=== PATIENT | female | born 2000 | race Caucasian/White ===

== ENCOUNTER 2021-01-04 20:08 | Emergency (ER) | payer OTHER, BC, SELFPAY ==
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
[2021-01-04 20:22] VITALS: BP 145/91; PULSE 108; RESP 18; TEMP 36.6; O2SAT 97
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
[2021-01-04 21:46] VITALS: BP 122/78; PULSE 86; RESP 18; O2SAT 99
== END 2021-01-04 21:47 | disposition home or self-care (01) ==
LOC: ANHED 21:28
PROVIDERS: Emergency Provider Emergency Medicine
DX: S13.4XXA Sprain of ligaments of cervical spine, initial encounter (principal); S29.012A Strain of muscle and tendon of back wall of thorax, initial encounter; Z97.5 Presence of (intrauterine) contraceptive device; V43.62XA Car passenger injured in collision with other type car in traffic accident, initial encounter
CPT/HCPCS: 72072; 99283

== ENCOUNTER 2021-06-15 12:17 | Emergency (ER) | payer OTHER, BC, SELFPAY ==
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
[2021-06-15 12:20] VITALS: BP 141/80; PULSE 96; RESP 17; TEMP 36.8; O2SAT 99
[2021-06-15] MEDS: KETOROLAC 30 MG/ML VIAL (*BKC) (13:29)
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
[2021-06-15 15:31] VITALS: BP 142/74; PULSE 84; RESP 17; O2SAT 98
== END 2021-06-15 15:48 | disposition home or self-care (01) ==
PROVIDERS: Emergency Provider Emergency Medicine
DX: S16.1XXA Strain of muscle, fascia and tendon at neck level, initial encounter (principal); V43.52XA Car driver injured in collision with other type car in traffic accident, initial encounter
CPT/HCPCS: 72125; 96372; 99284; J1885

== ENCOUNTER → 2022-05-07 10:45 | Outpatient (CLI) | payer BC, SELFPAY ==
--- NOTE | ~2022-05-07 | MR_ITS ---
EXAMINATION: MR pituitary wo/w con DATE: 05/07/2022 11:35 INDICATION: Hyperprolactinemia TECHNIQUE: Magnetic resonance imaging (MRI) of the brain and brainstem was performed without and with 18 mL Multihance intravenous contrast. Whole-brain sequences included sagittal T1-weighted FSE, axia l diffusion-weighted FS EPI, axial T2*-weighted GRE, axial T2-weighted FLAIR Propeller, and axial T2- weighted Propeller. Small ocagq-xw-ehie sequences included sagittal and coronal T1-weighted FSE cente red at the pituitary. Postcontrast sequences included small cyyqt-ti-fslg coronal T1-weighted FSE in a time course and sagittal T1-weighted FSE and whole-brain axial T1-weighted FSE. Apparent diffusion coefficient (ADC) maps were created. COMPARISON: None. FINDINGS: There are no areas of restricted diffusion to suggest acute infarction. No intracranial hemorrhage or abnormal intracranial mass lesion. There are no intraparenchymal signal abnormalities seen on the ot her pulse sequences. Pituitary appears normal in size and contour with normal homogeneous enhancement . No pituitary micro-/macroadenoma. Pituitary stalk is normal and midline with no evident impinging l esions. The ventricles are symmetric and normal in size. There are no abnormal extra-axial fluid phuc ections. Flow voids are seen in the cerebral arteries on the T2-weighted sequences consistent with th eir expected patency. Visualized orbits and soft tissues are unremarkable. There are no areas of abno rmal enhancement on the post contrast images. IMPRESSION: 1. Normal brain and pituitary MRI. Reviewed, dictated and finalized at location A.
[2022-05-07 11:04] LABS: Estimated Glomerular Filt Rate > 60
== END ==
PROVIDERS: PCP Family Medicine; Visit Provider Obstetrics & Gynecology
DX: E22.1 Hyperprolactinemia (principal)
CPT/HCPCS: 70553; A9577

== ENCOUNTER 2023-12-13 20:50 | Emergency (ER) | payer BC, SELFPAY ==
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
[2023-12-13 20:51] VITALS: BP 123/100; PULSE 78; RESP 19; TEMP 36.1; O2SAT 98
[2023-12-13 21:43] LABS: Appearance Urine Clear (Clear); Bacteria Urine None Seen /hpf; Bilirubin Urine 1+ (Negative); Blood Urine 2+ (Negative); Color Urine Orange (Yellow); Glucose Urine UA Negative (Negative); Ketones Urine Negative (Negative); Leukocyte Esterase Ur 3+ LEU/UL (Negative); Need Manual Microscopic Reviewed; Nitrate Urine Positive (Negative); Non Pathogenic Casts 0-2; Protein Urine 1+ mg/dL (Negative); Specific Grav Ur 1.008 (1.001-1.035); Squamous Epithelial Cell Urine Occasional /hpf (Few); WBC Urine 21-50 /hpf
[2023-12-13 21:45] LABS: Add Urine Microscopic? YES
--- NOTE | 2023-12-13 21:45 | ED.FEMALEGU ---
HPI - Female Genitourinary General Chief complaint: Urogenital-Female Stated complaint: Blood in urine, abd pain, discoloration on r breas Time Seen by Provider: 12/13/23 21:22 Source: patient Mode of arrival: ambulatory Limitations: no limitations History of Present Illness HPI Narrative: This is a 23-year-old female who presents to the ED for chief complaint of frequency of urination with hematuria x2 days. Reports some suprapubic discomfort as well. States she has had UTIs in the past but has not had pain like this. Today she reports that she started to have flank pain on the right side. Denies nausea, vomiting, fevers, chills. Related Data Home Medications Medication Instructions Recorded Confirmed norethindrone 0.5 mg-ethinyl 1 tablet PO 02/26/23 12/11/23 estradiol 35 mcg tablet (Nortrel) Allergies Allergy/AdvReac Type Severity Reaction Status Date / Time Penicillins Allergy Intermediate Unknown Verified 12/13/23 20:54 metformin AdvReac Severe diarrhea Verified 12/13/23 20:54 Review of Systems Review of Systems: All systems as dictated in [facility] Past Medical History Medical History Healthy female adult Surgical History Surgical History No history of previous surgery Family History Family History Father Hypertension Social History Social History (Updated 12/11/23 @ 16:08 by Yuli Duncan MA) Smoking status: Never smoker Second hand tobacco smoke exposure: No Alcohol intake: current Alcohol use details: socially Substance use: never Substance use type: marijuana Last use: 12/10/23 Living arrangements: with family Additional living arrangements comments: Occupation/Education: student Gender identity (if verbalized by the patient): Female Exam Narrative: GENERAL: Well-appearing, well-nourished, and in no acute distress. HEAD: Normocephalic, atraumatic. EYES: PERRLA and EOMI. ENT: Nares clear, no rhinorrhea or epistaxis. Mucous membranes moist. Oropharynx without tonsillar hypertrophy exudate or other lesions. NECK: Supple. No adenopathy or masses. CHEST: No respiratory distress. Clear to auscultation. No wheezes rales or rhonchi HEART: Regular rate and rhythm. No murmur heard. Normal peripheral pulses. ABDOMEN: Mild right flank tenderness. Negative left flank tenderness. soft, otherwise nontender, nondistended, normal active bowel sounds. MSK: Normal range of motion. No edema. SKIN: Warm, dry, no rash. NEURO: Alert and oriented x3. No focal deficits. PSYCH: Normal mood and affect. Course Vital Signs Vital signs: Vital Signs Temperature 97.0 F L 12/13/23 20:51 Pulse Rate 78 12/13/23 20:51 Respiratory Rate 19 12/13/23 20:51 Blood Pressure 123/100 H 12/13/23 20:51 Pulse Oximetry 98 12/13/23 20:51 Oxygen Delivery Room Air 12/13/23 20:51 Temperature 97.0 F L 12/13/23 20:51 Pulse Rate 69 12/14/23 01:01 Respiratory Rate 15 12/14/23 01:01 Blood Pressure 118/54 L 12/14/23 01:01 Pulse Oximetry 98 12/14/23 01:01 Oxygen Delivery Room Air 12/13/23 20:51 MDM - Female Genitourinary MDM Narrative Medical decision making narrative: This is a 23-year-old female who presents to the ED with chief complaint of urinary symptoms and abdominal pain. Vitals are normal. Exam does reveal a little bit of right flank tenderness along with suprapubic tenderness. Lab work shows elevated white count of 14.6. CMP unremarkable. CRP elevated to 1.8. Urinalysis shows nitrite positive urine, 3+ leuks and 21-50 wbc's. Overt urinary tract infection detected and culture will be sent. She was given Levaquin dose here. CT abdomen and pelvis with IV contrast: Impression: No obstructive uropathy. Kidneys are unremarkable. Normal renal corti
[2023-12-13 21:54] LABS: Basophils Percent Auto 0.3 % (0.2-1.2); Eosinophils Absolute Auto 0.1 K/mm3 (0-0.3); Eosinophils Percent Auto 0.6 % (0-4.4); Hematocrit 37.1 % (37.0-47.0); Hemoglobin 12.3 g/dL (12.0-15.0); Immature Granulocyte Absolute 0.03 K/mm3 (0.00-0.031); Immature Granulocyte Percent A 0.2 % (0-0.5); Lymphocytes Absolute Auto 3.01 K/mm3 (0.9-3.2); Lymphocytes Percent Auto 20.6 % (18.3-44.2); Mean Corpuscular HGB Conc 33.2 g/dl (32-36); Mean Corpuscular Volume 87.5 fl (80-100); Mean Platelet Volume 9.2 fl (7.4-10.4); Monocytes Absolute Auto 0.7 K/mm3 (0.1-0.6); Monocytes Percent Auto 4.5 % (2.6-8.5); Neutrophils Absolute Auto 10.8 K/mm3 (1.3-6.7); Neutrophils Percent Auto 73.8 % (45.5-73.1); Platelet Count Result 404 k/mm3 (150-375); Red Blood Count 4.24 M/mm3 (4.2-5.4); Red Cell Distribution Width 12.6 % (11.5-14.5); White Blood Count 14.6 K/mm3 (4.5-10.0)
[2023-12-13 22:06] LABS: Alanine Aminotransferase 16 U/L (6-35); Albumin Level 4.2 g/dL (3.5-5.1); Alkaline Phosphatase 49 U/L (38-126); Anion Gap 9 mmol/L (8-16); Aspartate Amino Transferase 19 U/L (14-36); Bilirubin,Total 0.4 mg/dL (0.2-1.3); Blood Urea Nitrogen 12 mg/dL (7-17); CRP 1.8 mg/dL (<1.0); Calcium 9.6 mg/dL (8.4-10.2); Carbon Dioxide 23 mmol/L (22-30); Chloride 105 mmol/L (98-107); Estimated CRCL calculation 104 ml/min; Estimated Glomerular Filt Rate > 60; Glucose 112 mg/dL (65-110); Potassium 3.5 mmol/L (3.4-5.0); Sodium 137 mmol/L (137-145)
[2023-12-13 22:13] VITALS: BP 130/80; PULSE 94; RESP 15; O2SAT 99
[2023-12-13] MEDS: levoFLOXacin 750 MG/D5W 150 ML 750 MG/150 ML BAG 100 MG IVPB (22:45)
[2023-12-14 01:01] VITALS: BP 118/54; PULSE 69; RESP 15; O2SAT 98
== END 2023-12-14 01:02 | disposition home or self-care (01) ==
PROVIDERS: Emergency Medicine; Emergency Provider Physician Assistant; PCP Family Medicine
DX: N39.0 Urinary tract infection, site not specified (principal)
CPT/HCPCS: 36415; 74177; 80053; 81001; 81025; 85025; 86140; 87086; 96365; 96366; 99284; J1956; Q9967

== ENCOUNTER 2023-12-15 13:02 | Outpatient (CLI) | payer BC, SELFPAY ==
--- NOTE | ~2023-12-15 | US_ITS ---
US breast RT limited DATE: 12/15/2023 13:53 INDICATION: Right breast pain TECHNIQUE: Real-time imaging targeted at area of clinical complaint of right breast pain, from 12:00 to 3:00 and subareolar area. COMPARISON: None FINDINGS: No suspicious mass or shadowing, cyst or other significant sonographic abnormality is detec aman. IMPRESSION: BI-RADS Category 1: Negative Reviewed, dictated and finalized at Location A. Reviewed, dictated and finalized at location A. [employer] S[employer] LANGUAGE INTERPRETER
== END 2023-12-15 13:03 | disposition home or self-care (01) ==
PROVIDERS: PCP Family Medicine; Visit Provider Physician Assistant
DX: N64.4 Mastodynia (principal)
CPT/HCPCS: 76642

== ENCOUNTER 2024-08-03 03:49 | Day surgery (SDC) | payer OTHER, BC, SELFPAY ==
[2024-07-25 13:57] VITALS: BMI 32.9
--- NOTE | 2024-07-25 14:05 | SUR.PREOP ---
Report to the Outpatient Waiting Room, entrance under the green pavilion located off [facility], at time 9:15a.m. on date . Planned Procedure Time: .? Time changes happen often and if your time is changed the preop area will call you the afternoon before. - You and your visitor will be asked to self-screen and do not enter if you have any COVID symptoms. Please call surgeon if you need to reschedule. - A mask is optional within the hospital at this time. Patients may have clear liquids (water, carbonated beverages, clear teas, apple juice) until 3 hours prior to surgery with a maximum of 20 ounces. - No food from midnight until time of surgery and no smoking - Infants may have breast milk until 4 hours before surgery, formula 6 hours prior to surgery. - Children will be allowed to drink immediately following surgery.? If applicable, please bring a bottle or sippy cup to assist with drinking. Juice, water, soda, and popsicles are readily available.? For infants on formula, please bring formula the day of surgery.? Pacifiers are allowed. Take only the following medications with a SIP of water on the morning of surgery: DO NOT STOP ANY OF YOUR OTHER PRESCRIPTION MEDICATIONS PRIOR TO SURGERY EXCEPT THE FOLLOWING Medications to discontinue per physician Date to take last dose Please no make-up, nail sinhala, hairspray, perfume, deodorant, or body powder the day of surgery.? No jewelry (including any body piercings) or valuables the day of surgery, leave them at home.? Please take a shower or bath the night before, or the morning of, surgery with an antibacterial soap.? Wear comfortable, loose fitting clothing.? Children are encouraged to wear pajamas. - Jewelry must be removed prior to entering the operating room.? Rings and piercings that are not removed may be cut off. - The hospital will not accept responsibility for valuables.? - Please leave all valuables, including medications, at home the day of surgery. If you are going home after surgery, a licensed hi lo driver must drive you home.? - NO public transportation without another adult if you receive anesthesia. - We recommend that an adult stay with you for 24 hours following discharge. - We also recommend that you do not drive, make important decision, drink alcoholic beverages, or take any drugs that were not prescribed by your health care provider for at least 24 hours after your discharge time. For Pediatric surgeries, we recommend two adults accompany the child home. Follow any additional instructions given to you from your surgeon. Telephone instructions given to and asked if any additional questions and then verbalized understanding. Patient advised to call surgeon office or pre surgery nurse liaison [phone] if any additional questions.
--- NOTE | 2024-07-25 14:14 | SUR.PREOP ---
Addendum entered by Pily James RN 07/26/24 05:49: Up to 20oz of clear liquids until 0315, 8 hours prior to surgery Original Note: Report to the Outpatient Waiting Room, entrance under the green pavilion located off [facility], at time 0915 on date 08/03/2024. Planned Procedure Time: 1115.? Time changes happen often and if your time is changed the preop area will call you the afternoon before. - You and your visitor will be asked to self-screen and do not enter if you have any COVID symptoms. Please call surgeon if you need to reschedule. - A mask is optional within the hospital at this time. Patients may have clear liquids (water, carbonated beverages, clear teas, apple juice) until 3 hours prior to surgery with a maximum of 20 ounces. - No food from midnight until time of surgery and no smoking - Infants may have breast milk until 4 hours before surgery, infant formula 6 hours prior to surgery. - Children will be allowed to drink immediately following surgery.? If applicable, please bring a bottle or sippy cup to assist with drinking. Juice, water, soda, and popsicles are readily available.? For infants on formula, please bring formula the day of surgery.? Pacifiers are allowed. Take only the following medications with a SIP of water on the morning of surgery: inhaler DO NOT STOP ANY OF YOUR OTHER PRESCRIPTION MEDICATIONS PRIOR TO SURGERY EXCEPT THE FOLLOWING Medications to discontinue per physician N/A Date to take last dose N/A Please no make-up, nail egyptian, hairspray, perfume, deodorant, or body powder the day of surgery.? No jewelry (including any body piercings) or valuables the day of surgery, leave them at home.? Please take a shower or bath the night before, or the morning of, surgery with an antibacterial soap.? Wear comfortable, loose fitting clothing.? Children are encouraged to wear pajamas. - Jewelry must be removed prior to entering the operating room.? Rings and piercings that are not removed may be cut off. - The hospital will not accept responsibility for valuables.? - Please leave all valuables, including medications, at home the day of surgery. If you are going home after surgery, a licensed local delivery truck driver must drive you home.? - NO public transportation without another adult if you receive anesthesia. - We recommend that an adult stay with you for 24 hours following discharge. - We also recommend that you do not drive, make important decision, drink alcoholic beverages, or take any drugs that were not prescribed by your health care provider for at least 24 hours after your discharge time. For Pediatric surgeries, we recommend two adults accompany the child home. Follow any additional instructions given to you from your surgeon. Telephone instructions given to Jennifer Qureshi and asked if any additional questions and then verbalized understanding. Patient advised to call surgeon office or pre surgery nurse liaison [phone] if any additional questions.
[2024-08-03] VITALS (8 sets, daily range): BP systolic 128–157; BP diastolic 66–92; PULSE 70–102; RESP 12–20; TEMP 36.2–36.7; O2SAT 95–100; BMI 33.4
--- NOTE | 2024-08-03 06:54 | P.HPUP_ITS ---
History and Physical Update Update Date/Time: 08/03/24 06:54 Patient seen and examined in pre-operative holding area. No interval change in medical history or symptoms. Patient remembers previous discussion of benefits and alternatives to procedure. Continues to desire to proceed with bilateral breast reduction. I reviewed the risks including but not limited to bleeding ,infection, asymmetry, undesireable cosmetic appearance, partial/total skin/nipple loss, no change or worsening of symptoms, change in sensation. I discussed the possible use of assistants and their level of participation in the case. Patient stated understanding and signed the consent form wishing to pr oceed
--- NOTE | 2024-08-03 06:54 | P.OP_ITS ---
Procedure Note - Detailed Date of Procedure 08/03/24 Pre-op Diagnosis hypertrophy of breasts Post-op Diagnosis Same Procedure Performed b/l breast reduction Surgeon Colin Mcpherson MD Technology Education Teacher meri vidal pa-c Anesthesia General Description of Procedure Patient was seen in the preoperative holding area where the consent form was signed and breast were marked for an inferior pedicle Akers pattern reduction. Patient was taken back to the operating room and placed on the table in the supine position. Time-out was performed with Anesthesia, surgeon, and staff agreeing on patient's name, site, and surgery to be performed. SCDs were placed on the lower extremities and inflated. Antibiotics were given IV. After general anesthesia was administered the breasts were prepped and draped in the usual sterile fashion. I took my attention 1st to the larger right breast where I used a saline moistened lap pad and Laisha clamp to create a breast tourniquet. I used a 38 mm nipple Sizer to circumscribe the nipple-areolar complex and proceeded with making this incision and de epithelializing a 7 cm wide inferior pedicle. I made my other skin incisions with 15 blade. Bovie was used to elevate my superior skin flaps and Ricky's plane down to the level of the chest wall exp osing the breast. I proceeded with resection of 581 g of tissue from the right breast. further resection would have increased risk of damage to nipple areolar blood and nerve supply. I irrigated with normal saline and hemostasis with Bovie cautery. The pedicle was plicated with 2-0 Vicryl suture. 2-0 Prolene was used to secure the T-junction. 3-0 Vicryl was used for dermal closure. The nipple was brought out 5 cm above the inframammary fold at the most prominent portion of the breast at the breast midline and secured with 3-0 Vicryl suture. 4-0 Monocryl was used for subcuticular closure. The skin flaps of and nipple appeared viable with good cap refill. Next I took my attention to the left breast where similar procedure was performed. I used a breast tourniquet, 38 mm nipple Sizer, and de- epithelialized a 7 cm wide inferior pedicle. I made my other skin incisions and elevated skin flaps and Ricky's plane down to the chest wall. I proceeded with resection of 491 g of tissue from the left breast. This appeared reasonably symmetric to the reduced right breast. I plicated the pedicle with 2-0 Vicryl suture after irrigation and hemostasis with Bovie cautery. 2-0 Prolene was used to secure the T-junction. 3-0 Vicryl was used for dermis. The nipple was brought out 5 cm above the inframammary fold at the most prominent portion of the breast at the breast midline and secured with 3-0 Vicryl suture. There was good size shape symmetry to the breasts. The nipple appeared viable with good cap refill. 4-0 Monocryl was used for subcuticular closure. I next injected 10 cc of 1% lidocaine with epinephrine and 0.5% Marcaine plain along the inframammary fold and anterior axillary line of each breast. A dressing of Mastisol, Steri-Strips, 4x4s, ABD and a breast binder was then applied. Patient was awakened from anesthesia and transferred to the recovery room in stable condition. Complications: None Estimated blood loss: 60 cc Disposition: Patient tolerated the procedure well and will be going home later today Meri Vidal PA-C was essential for positioning, retraction, closure and dressing placement [facility] [place] Surgery - Charge Forward: Surgery Billing ([id number] same for meri chaparro )
[2024-08-03] MEDS: LACTATED RINGERS 1,000 ML 30 ML IV CONT ×2 (10:59→14:33)
[2024-08-03 11:50] LABS: BEDSIDEPREGUCG Negative (Negative)
--- NOTE | 2024-08-03 11:54 | WPDANESEPPF ---
Anes - Initial Pre Proc Eval Procedure: Operation Date: 08/03/24 12:45 Proposed Procedures p Bilateral Breast Reduction - Colin Mcpherson MD Date/Time: 08/03/24 11:54 Surgeon: Colin Mcpherson MD Pre Op Diagnosis: hypertrophy of breasts Patient Data Age: 24 Gender: F Height: 1.57 m Weight: 82.85 kg Last Vital Signs Temp 97.1 F L 08/03/24 10:30 Pulse 76 08/03/24 10:30 Resp 14 08/03/24 10:30 BP 128/90 08/03/24 10:30 Pulse Ox 99 08/03/24 10:30 O2 Del Method Room Air 08/03/24 10:30 Allergies Allergy/AdvReac Type Severity Reaction Status Date / Time Penicillins Allergy Intermediate Unknown Verified 08/03/24 10:51 metformin AdvReac Severe diarrhea Verified 08/03/24 10:51 Home Medications Medication Instructions Recorded Confirmed Type norethindrone 0.5 mg-ethinyl 1 tablet PO DAILY 02/26/23 08/03/24 History estradiol 35 mcg tablet (Nortrel) beclomethasone dipropionate 80 See Rx Instructions .Route 12/14/23 08/03/24 Rx mcg/actuation HFA breath activated .COMPLEX #31.8 grams aerosol (Qvar RediHaler) clindamycin HCl 300 mg capsule 300 mg PO BID #10 caps 08/03/24 Rx hydrocodone 5 mg-acetaminophen 325 1 tablet PO Q6H PRN pain #12 tabs 08/03/24 Rx mg tablet Laboratory Tests 08/03/24 11:00 POC Urine HCG, Qual Negative (Negative) Patient hx anesthesia problems: none Family hx anesthesia problems: none Results Review: All pre-operative results and documents have been reviewed as part of the pre-operative evaluation. [facility] Past Medical History Medical History Healthy female adult Surgical History Surgical History No history of previous surgery Family History Family History Father Hypertension Social History Social History Smoking status: Never smoker Second hand tobacco smoke exposure: No Alcohol intake: current Drinks per week: 1 Alcohol use details: ocassional Substance use: current Substance use type: marijuana Other substance usage details: 3-4 times weekly Last use: 12/10/23 Living arrangements: with family Additional living arrangements comments: Occupation/Education: student Gender identity (if verbalized by the patient): Female Anes - Eval Final PreProcedure Day of Procedure 08/03/24 11:54 Patient weight: obese Heart: regular rate and rhythm Lungs: clear to auscultation Airway: Mallampati scale class II Neurological: alert and oriented Last oral intake: >/= 8 hours ASA classification: II Emergent: no Anesthetic plan: proceed Anesthesia type and monitoring: general ETT and standard monitoring Results Review: All pre-operative results and documents have been reviewed as part of the pre-operative evaluation. Exercise induced asthma, stable of recent. Informed Consent: The patient's anesthetic plan and its attendant risks and benefits were discussed with the patient/family/POA. Questions were solicited and answers provided to the satisfaction of the patient/family/POA.
[2024-08-03] MEDS: ceFAZolin 2 GM/D5W 50 ML 2 GM/50 ML BAG IVPB (12:08)
[2024-08-03] MEDS: LIDO 1%/EPINEPHRINE 1:100,000 50 ML VIAL 25 ML INFILTRATE (12:30)
--- NOTE | 2024-08-03 13:26 | SUR.OPER ---
MD DIMAS with breast tissue sent to pathology in formalin. Carlos Pisano RN
[2024-08-03] MEDS: fentaNYL CITRATE INJ (*CRX) 100 MCG/2 ML VIAL 25 MCG IV PUSH ×3 (14:26→14:33)
[2024-08-03] MEDS: ONDANSETRON INJ 4 MG/2 ML VIAL IV PUSH (15:09)
[2024-08-03] MEDS: oxyCODONE HCL (*CRX) 5 MG TAB IR PO (15:10)
== END 2024-08-03 15:45 | disposition home or self-care (01) ==
PROVIDERS: Physician Assistant Surgical; PCP Family Medicine; Visit Provider Plastic Surgery
PROC: 0HBV0ZZ Excision of Bilateral Breast, Open Approach (ICD-10-PCS; CPT 19318; principal; 2024-08-03 12:45)
DX: N62 Hypertrophy of breast (principal); F12.90 Cannabis use, unspecified, uncomplicated; E66.9 Obesity, unspecified; Z68.33 Body mass index [BMI] 33.0-33.9, adult; Z79.891 Long term (current) use of opiate analgesic
CPT/HCPCS: 19318; 88305; A9270; J0690; J1100; J1171; J1596; J2003; J2004; J2250; J2405; J2704; J2710; J3010; J7120

== ENCOUNTER 2024-11-23 09:47 | Emergency (ER) | payer OTHER, BC, SELFPAY ==
[2024-11-23 10:00] VITALS: BP 145/99; PULSE 109; RESP 16; TEMP 36.8; O2SAT 100
--- NOTE | 2024-11-23 10:31 | ED.URI ---
HPI - URI/Sore Throat General Chief Complaint: Upper Respiratory Infection Stated Complaint: Upper Respiratory Symptoms Source: patient and RN notes reviewed Mode of arrival: ambulatory Limitations: no limitations History of Present Illness HPI Narrative: 24 y/o female with asthma presented for c/o headache, body aches, sinus pressure/congestion, cough, fever/chills. Reports wheezing difficulty sleeping last night. Using her albuterol inhaler more frequently. Temp up to 101. Denies nausea, vomiting, diarrhea or lethargy. Taking Tylenol. MD elicited complaint: cough Related Data Home Medications ?Medication ?Instructions ?Recorded ?Confirmed ?Last Taken ?Type norethindrone 0.5 mg-ethinyl 1 tablet PO DAILY 02/26/23 08/03/24 08/02/24 History estradiol 35 mcg tablet (Nortrel) Allergies Allergy/AdvReac Type Severity Reaction Status Date / Time Penicillins Allergy Mild hives Verified 11/23/24 10:03 metformin AdvReac Intermediate diarrhea Verified 11/23/24 10:03 Review of Systems Review of Systems: Per [facility] Past Medical History Medical History (Updated 11/23/24 @ 10:39 by Anabelle Garcia APRN) Moderate persistent asthma Healthy female adult Surgical History Surgical History History of bilateral breast reduction surgery 08.03.24 No history of previous surgery Family History Family History Father Hypertension Social History Social History Smoking status: Never smoker Second hand tobacco smoke exposure: No Alcohol intake: current Drinks per week: 1 Alcohol use details: ocassional Substance use: current Substance use type: marijuana Other substance usage details: 3-4 times weekly Last use: 12/10/23 Living arrangements: with family Additional living arrangements comments: Occupation/Education: student Gender identity (if verbalized by the patient): Female Exam Narrative: GENERAL: well-appearing, nontoxic EYES: PERRLA, conjunctivae clear ENT: Mucous membranes moist. TM pearly farah with dull light reflex bilaterally; no tragal tenderness. Oropharynx erythematous without lesions or exudate, no drooling, no hoarseness, no trismus, uvula midline. No tripod positioning, muffled voice, soft palate or pharyngeal wall bulging NECK: Supple. No lymphadenopathy CHEST: Clear to auscultation, breath sounds equal. No wheezing, rhonchi, rales, or stridor. No respiratory distress, speaks in full sentences. HEART: Regular rate and rhythm. SKIN: Warm, dry, no rash. NEURO: Alert and oriented x3. PSYCH: Normal mood and affect Course Course Emergency Course: Patient is aware of diagnosis, understands and agrees to treatment plan. Anticipatory guidance given. Patient agrees to follow-up as directed and is aware of reasons to seek care at the emergency department. Portions of this record may have been created with voice recognition software Level of Care: Express Care Visit Vital Signs Vital signs: Vital Signs Temperature 98.2 F 11/23/24 10:00 Pulse Rate 109 H 11/23/24 10:00 Respiratory Rate 16 11/23/24 10:00 Blood Pressure 145/99 H 11/23/24 10:00 Pulse Oximetry 100 11/23/24 10:00 Temperature 98.2 F 11/23/24 10:00 Pulse Rate 109 H 11/23/24 10:00 Respiratory Rate 16 11/23/24 10:00 Blood Pressure 145/99 H 11/23/24 10:00 Pulse Oximetry 100 11/23/24 10:00 reviewed MDM - URI/Sore Throat MDM Narrative Medical decision making narrative: Positive flu. Discussed physical exam findings. Advised supportive measures and signs/symptoms to go to the ER. Pt is appropriate for outpt treatment and f/u. Differential Diagnosis Differential diagnosis: Likely upper respiratory infection, sinusitis and viral infection Discharge Plan Discharge Clinical Impression: Influenza Patient Disposition: Home, Self-Care Condition: Stable Instructions: Influenza (ED) Additional Instructions: Influenza positive You should avoid crowds until you are fever free for 24 hours without the use of fever reducing medications, or the symptoms are improved Rest. Drink plenty of fluids. Tylenol 1000mg every 8 hours as needed for pain/fever Flonase spray and Zyrtec (or Claritin/Michelle) for sinus pressure/congestion over the counter Cough syrup may cause drowsiness; avoid driving or take it at night time. Follow up with your primary care provider as needed Go to the ER for worsening symptoms or concerns Patient Language: Albanian Prescriptions: New prednisone 20 mg tablet 40 mg PO DAILY 5 Days Qty: 10 0RF No Action Nortrel 0.5/35 (28) 0.5-35 mg-mcg tablet 1 tablet PO DAILY Qvar RediHaler 80 mcg/actuation HFA aerosol breath activated See Rx Instructions .ROUTE .COMPLEX Qty: 31.8 5RF Dose Instruction: USE 1 INHALATION EVERY 12 HOURS Rx Instructions: USE 1 INHALATION EVERY 12 HOURS Follow-up/Referrals: Eda Forbes MD [Primary Care Provider] - Stand Alone Forms: Work/School Release IP Time of Disposition: 10:37
[2024-11-23 10:35] LABS: EDCOVIDSCREEN Negative (Negative); EDINFLUASCREEN Positive (Negative); EDINFLUBSCREEN Negative (Negative)
== END 2024-11-23 10:37 | disposition home or self-care (01) ==
PROVIDERS: Emergency Provider Nurse Practitioner Family; PCP Family Medicine
DX: J10.1 Influenza due to other identified influenza virus with other respiratory manifestations (principal); Z20.822 Contact with and (suspected) exposure to COVID-19; J45.909 Unspecified asthma, uncomplicated
CPT/HCPCS: 87426; 87804; 99213; G0463